=== PATIENT | male | born 1980 | race Hispanic/Latino ===

== ENCOUNTER 2016-06-06 20:05 | Emergency (ER) | payer SELFPAY ==
[~2016-06-06] VITALS: Ht 172.7 cm; Wt 116.7 kg
[2016-06-06 20:25] VITALS: BP 143/84; PULSE 69; RESP 15; O2SAT 96
--- NOTE | 2016-06-06 21:19 | ED.REPORT ---
HPI-Abd Pain M Under 38 Date of Service Jun 06, 2016 ED Provider: Dr. Varun Anderson M.D. A healthy 36 year old male presents to the ED from Urgent Care with right flank pain onset 1100 this morning. The pain began as lower back pain, which resolved in the middle of the day. The patient also noted mild hematuria early in the day , which also resolved. His pain returned upon urinating at 1700 this evening, with radiation to his right groin and testicle. Associated symptoms at that time included nausea, vomiting, and diaphoresis. His pain and other symptoms have since resolved here in the ED. The patient speaks [place] and his was translating. Nursing Notes Stated Complaint: LOWER ABDOMINAL PAIN/CANT FEEL RT TESTICLE Chief Complaint: Male Abdominal Pain Nursing Notes Reviewed: Yes Allergies: Coded Allergies: No Known Allergies (Unverified , 06/06/16) No Active Prescriptions or Reported Meds General Time Seen by MD: 21:19 Chief Complaint Flank pain right Hx Obtained From: Patient, Spouse Arrived By: Walk-in Sudden in Onset?: Yes Onset Occurred: 9 - 12 hours ago Symptom Duration: Intermittent Location: : RLQ (Groin) Quality: Painful Severity: Current: Moderate Severity: Maximum: Moderate Associated with: Reports: Nausea, Vomiting, Denies: Fever Pertinent Negative: Relieved by nothing Recent Healthcare: Recent doctor visit Past Medical History Past Medical History None reported Past Surgical History None reported Smoking History Never Smoker Social History Alcohol Use: Denies alcohol use Drug Use: Denies drug use Other Social History: Good social support, Ambulatory Status Independent Review of Systems Review of Systems Note: + Right inguinal pain Constitutional: Denies: Fever Respiratory: Denies: Non-productive cough, Shortness of breath GI: Reports: Nausea, Vomiting Male: Reports Flank pain (Right), Reports Hematuria, Reports Testicular pain (Right ) Complete sys rev & neg: except as marked. Skin: Reports Diaphoresis Physical Exam Initial Vital Signs Vital Signs (First) Date Time Temp Pulse Resp B/P Pulse Ox O2 Delivery O2 Flow Rate FiO2 06/06/16 20:25 36.1 69 15 143/84 96 Room Air Initial VS: Reviewed Head / Eyes: Atraumatic, Normocephalic ENT: Conjunctiva normal, No scleral icterus Neck: Supple, Full range of motion Skin: Warm, Dry, No cyanosis Neurologic: Alert, Oriented, Nonfocal Psychiatric: Mood/affect normal, Behavior normal, Normal thought content General/Constitutional: Awake, Alert, No acute distress Respiratory / Chest: Breath sounds NL, Breath sounds = bilat, No respiratory distress Cardiovascular: Heart rate NL, Regular rhythm, Heart sounds NL Abdomen: Soft, Non-tender Interpretation & Diagnostics PROCEDURE: US TESTICULAR SONOGRAM WITH DOPPLER IMPRESSION: No evidence of testicular torsion. Possible trace bilateral hydroceles although this amount of fluid could be physiologic. Dictated by: Raul Amanda M.D. on 06/06/2016 at 22:04 URINE DIPSTICK: 1.020 sp gravity 5 pH + 30 Protein Normal Glucose Normal Urobilinogen ~250 Bobby/ml Otherwise Negative Lab Results Interpretation Result Diagram: 06/06/16220906/06/16 2210 Test 06/06/16 21:06 06/06/16 22:10 Urine Color Dark yellow (YELLOW) Urine Appearance Hazy (CLEAR,HAZY) Urine pH 5.5 (5.0-8.0) Urine Specific [place] 1.030 (1.003-1.035) Urine Protein 30mg/dL (NEG,TRACE) Urine Glucose (UA) Negativemg/dL (NEGATIVE) Urine Ketones Negativemg/dL (NEGATIVE) Urine Occult Blood Large (NEGATIVE) Urine Nitrite Positive (NEGATIVE) Urine Bilirubin Negative (NEGATIVE) Urine Urobilinogen Normalmg/dL (NORMAL) Urine Leukocyte Esterase Negative (NEGATIVE) Urine RBC 11-50/hpf (0-2) Urine WBC 0-5/hpf (0-5) Urine Epithelial Cells Occasional/hpf (NONE-MOD) Urine Crystals Oxalic acid crystals (NONE Urine Bacteria Few/hpf (NONE-FEW) Urine Hyaline Casts None/lpf (NONE) Urine Granular Casts None seen (NONE SEEN) Urine Waxy Casts None seen (NONE SEEN) Urine Red Blood Cell Casts None seen (NONE SEEN) Urine White Blood Cell Casts None seen (NONE SEEN) Urine Mucus Present (None Seen) Urine Trichomonas None seen (NONE SEEN) Urine Yeast None (NONE SEEN) Urinalysis Comment None Urine Culture Reflexed Indicated Hold Urine Received (Received) White Blood Count 12.8th/mm3 (3.8-10.1) Red Blood Count 5.23mil/mm3 (4.40-5.80) Hemoglobin 15.9g/dL (13.8-17.2) Hematocrit 45.2% (41.0-50.0) Mean Corpuscular Volume 86.4fL (81-100) Mean Corpuscular Hemoglobin 30.4pg (27.0-35.0) Mean Corpuscular Hemoglobin Concent 35.2% (32.0-37.0) Red Cell Distribution Width 12.7% (12.3-15.4) Platelet Count 247bil/L (150-400) Neutrophils (%) (Auto) 77.8% (40-74) Lymphocytes (%) (Auto) 16.5% (14-46) Monocytes (%) (Auto) 4.5% (4-12) Eosinophils (%) (Auto) 0.5% (0-5) Basophils (%) (Auto) 0.2% (0-3) Sodium Level 140mEq/L (134-144) Potassium Level 4.3mEq/L (3.5-5.2) Chloride Level 102mEq/L (97-108) Carbon Dioxide Level 21mmol/L (18-29) Blood Urea Nitrogen 14mg/dL (6-20) Creatinine 0.76mg/dL (0.76-1.27) Estimat Glomerular Filtration Rate 122mL/min (>59) Glucose Level 131mg/dL (60-99) Calcium Level 9.4mg/dL (8.5-10.1) Magnesium Level 2.1mg/dL (1.6-2.6) Total Bilirubin 0.8mg/dL (0.0-1.2) Aspartate Amino Transf (AST/SGOT) 79U/L (0-50) Alanine Aminotransferase (ALT/SGPT) 143U/L (0-44) Alkaline Phosphatase 84U/L (25-150) Total Protein 8.4g/dL (6.4-8.4) Albumin 4.8g/dL (3.4-5.0) Lipase 28U/L (13-60) X-Ray Abdominal Interpretation Possible tiny stone in bladder Moderate stool present No other calcification Study: KUB Interpretation / Wet Read by: Wet read ED physician Re-Eval/Medical Decision Med Decision/Clinical Course 28-year-old presented at urgent visit with flank pain and abdominal pain. Referred here for evaluation at the end of their day. He presents in triage here and complains primarily of his testicle being an issue. An ultrasound reveals normal testicle. History reveals that he had instantaneous onset of severe flank pain and nausea, and all that is now resolved. He has blood in his urine. He has a totally benign exam with a benign right lower quadrant. At this point, is clearly a kidney stone. No indication for imaging at this time. Prompt return if recurrent or worsening. Hydration strategies discussed at some length. Follow-up with PCP. Re-Evaluation/Progress : Time of Eval: 23:40 Patient Status: Condition improved Re-Evaluation/Progress Note: Discussed with patient x-ray and lab results, diagnosis, and plan for discharge. Follow-up and return to the ER instructions given. Patient agrees with plan for care and all questions were addressed. Counseled Regarding: Diagnosis, Lab results, Need for follow-up, When/why to return to ED Patient Discharge & Departure Primary Impression: Ureteral colic Disposition: Home Discharge Condition All VS Reviewed: Yes Condition: Improved Patient Instructions: Acute Abdominal Pain (ED), Renal Colic (ED) Additional Instructions: Stay well-hydrated. The best practice suggests drinking 12 ounces of fluid before bedtime, and then again when you wake up to urinate. This habit prevents you concentrating overnight and forming stones on a nightly basis. Follow-up with your doctor in the office. Return probably if you develop similar pain in the flank and side and abdomen again. Mantngase juliana hidratado. La mejor prctica sugiere beber 12 onzas de lquido antes de acostarse, y luego otra vez cuando se despierta para orinar. Kandice h bito le impide concentrarse sandi la noche y formar piedras sobre sandra base nocturna. Seguimiento con bernstein mdico en la oficina. Vuelva probablemente si usted desarrolla dolor similar en el flanco y el lado y el abdomen otra vez. Referrals: NOPCP (PCP) [facility] Scribe Attestation Portions of this note were transcribed by Melissa Boggs. I, Dr. Anderson, personally performed the history, physical exam, and medical decision-making; I reviewed and confirmed the accuracy of the information in the transcribed note. Signed by: Pedro Harrington, 06/07/2016, 01:35 copies to: [facility] Varun Anderson MD Jun 06, 2016 21:19 MELISSA BOGGS Jun 06, 2016 23:53
--- NOTE | 2016-06-06 22:08 | DRSVH ---
PROCEDURE: US TESTICULAR SONOGRAM WITH DOPPLER INDICATIONS: right testicle pain /malposition TECHNIQUE: Real-time scanning was performed of the scrotum and testicles, with image documentation. Color and p ulse Doppler interrogation was performed of both testicles. COMPARISON: None. FINDINGS: Right: Testicle is normal in size at 4.8 x 2.8 x 3.4 cm, and homogenous in echotexture. Epididymis is normal in overall size and morphology. Possible minimal hydrocele although this amount of fluid co uld be physiologic. No varicoceles. Overlying scrotal skin is normal in thickness. Left: Testicle is normal in size at 4.5 x 2.7 x 3.5 cm, and homogeneous in echotexture. Epididymis is normal in overall size and morphology. Incidentally noted epididymal appendix. Possible minimal hy drocele although this no fluid could be physiologic. No varicoceles. Overlying scrotal skin is henny l in thickness. Doppler: Color and pulse Doppler demonstrate normal and symmetric arterial flow in both testicles. IMPRESSION: No evidence of testicular torsion. Possible trace bilateral hydroceles although this amount of fluid could be physiologic. Dictated by: Raul Amanda M.D. on 06/06/2016 at 22:04 Approved by: Raul Amanda M.D. on 06/06/2016 at 22:06
[2016-06-06 22:40] VITALS: BP 138/76; PULSE 72; RESP 16; O2SAT 97
[2016-06-06 23:12] LABS: APPEARANCE,URINE HAZY (CLEAR,HAZY); COLOR,URINE DARK YELLOW (YELLOW); OCCULT BLOOD,URINE LARGE (NEGATIVE); PH,URINE 5.5 (5.0-8.0); UROBILINOGEN,URINE NORMAL (NORMAL)
[2016-06-07 00:03] LABS: BASOPHILS % (AUTO) 0.2 % (0-3); EOSINOPHILS % (AUTO) 0.5 % (0-5); MONOCYTES % (AUTO) 4.5 % (4-12); Mean Corpuscular Hemoglobin 30.4 pg (27.0-35.0); Mean Corpuscular Volume 86.4 fL (81-100); NEUTROPHILS % (AUTO) 77.8 % (40-74); Platelet Count 247 bil/L (150-400)
[2016-06-07 00:12] VITALS: BP 130/68; PULSE 76; RESP 16; O2SAT 99
[2016-06-07 00:13] LABS: Magnesium 2.1 mg/dL (1.6-2.6)
--- NOTE | 2016-06-07 09:17 | DRSVH ---
PROCEDURE: X-RAY KUB ([id number]) INDICATIONS: rIGHTt flank pain, hematuria TECHNIQUE: One view of the abdomen acquired. COMPARISON: None. FINDINGS: Surgical changes and devices: None. Bowel: Bowel gas pattern is normal. Soft tissues: No suspicious abdominal calcifications. Visualized solid organ contours appear normal in size. Bones: No suspicious bony lesions. IMPRESSION: Moderate amount of colonic stool within the right and transverse colon otherwise normal b owel gas pattern. Dictated by: Justin FITZPATRICK Interpreted: Marie Arias MD on 06/07/2016 at 9:16 Transcribed by: GA on 06/07/2016 at 9:17 Approved by: Marie Arias M.D. on 06/07/2016 at 17:21
== END 2016-06-07 00:13 | disposition home or self-care (01) ==
LOC: SED 20:05
DX: N23 Unspecified renal colic (principal); R11.2 Nausea with vomiting, unspecified; R61 Generalized hyperhidrosis; N50.811 Right testicular pain